=== PATIENT | male | born 1975 | race Hispanic/Latino ===

== ENCOUNTER 2016-10-02 17:16 | Emergency (ER) | payer BC ==
[2016-10-02 17:16] VITALS: BMI 31.1
[2016-10-02 17:40] VITALS: BP 150/81; TEMP 98
[2016-10-02] MEDS ORDERED: Lidocaine 5% Patch TD STA (17:59)
--- NOTE | 2016-10-02 18:04 | ED PDOC ---
Arrival/HPI - General Chief Complaint: Back Pain Time Seen by Provider: 10/02/16 17:20 Historian: Patient - History of Present Illness Narrative History of Present Illness (Text): 10/02/16 17:30 41 y/o male, pmh including chronic lower back pain x 6 years with radiating pain, c/o rt. lower back pain with radiating pain to the rt. lower extremity started again today with on fall or trauma. Aching pain, aggravated by bending , no urinary symptoms, no rash, no pain medication taken at home, no fever or chills, no urinary or bowel incontinence or retention, no other medical or psychological complaints. Past Medical History - Provider Review Nursing Documentation Reviewed: Yes - Infectious Disease Hx of Infectious Diseases: None - Tetanus Immunization Tetanus Immunization: Up to Date - Past Medical History Past Medical History: No Previous - Psychiatric Hx Substance Use: No - Suicidal Assessment Feels Threatened In Home Enviroment: No Family/Social History - Physician Review Nursing Documentation Reviewed: Yes Family/Social History: Unknown Family HX Smoking Status: Never Smoked Hx Alcohol Use: Yes Hx Substance Use: No Hx Substance Use Treatment: No Allergies/Home Meds Allergies/Adverse Reactions: Allergies No Known Allergies Allergy (Verified 10/02/16 17:40) Home Medications: Home Meds Medication Instructions Recorded Confirmed Naproxen [Naprosyn] 500 mg PO BID PRN 10/02/16 10/02/16 Review of Systems - Review of Systems Constitutional: absent: Fatigue, Fevers Eyes: absent: Vision Changes ENT: absent: Hearing Changes Respiratory: absent: Cough, Sputum Cardiovascular: absent: Chest Pain Gastrointestinal: absent: Abdominal Pain, Nausea, Vomiting Musculoskeletal: Back Pain. absent: Arthralgias, Neck Pain, Joint Swelling, Myalgias Skin: absent: Rash, Pruritis, Skin Lesions, Laceration, Abscess, Ulcer, Cellulitis Psychiatric: absent: Anxiety, Depression, Suicidal Ideation Physical Exam Vital Signs Reviewed: Yes Vital Signs Temp Pulse Resp BP Pulse Ox 10/02/16 17:34 98 F 77 18 150/81 97 Temperature: Afebrile Blood Pressure: Normal Pulse: Regular Respiratory Rate: Normal Appearance: Positive for: Well-Appearing, Non-Toxic, Comfortable Pain Distress: Moderate Mental Status: Positive for: Alert and Oriented X 3 - Systems Exam Head: Present: Atraumatic, Normocephalic Pupils: Present: PERRL Extroacular Muscles: Present: EOMI Conjunctiva: Present: Normal Mouth: Present: Moist Mucous Membranes Neck: Present: Normal Range of Motion Respiratory/Chest: Present: Clear to Auscultation, Good Air Exchange. No: Respiratory Distress, Accessory Muscle Use Cardiovascular: Present: Regular Rate and Rhythm, Normal S1, S2. No: Murmurs Abdomen: Present: Normal Bowel Sounds. No: Tenderness, Distention, Peritoneal Signs Back: Present: Other (LS spine: no midline or paraspinal tenderenss, no step off , no rash, FROM without limitation, sensation intact, motor 5/5.). No: CVA Tenderness, Midline Tenderness, Paraspinal Tenderness Upper Extremity: Present: Normal Inspection. No: Cyanosis, Edema Lower Extremity: Present: Normal Inspection. No: Edema Neurological: Present: GCS=15, Speech Normal, Motor Func Grossly Intact, Gait Normal, Memory Normal Skin: Present: Warm, Dry, Normal Color. No: Rashes Psychiatric: Present: Alert, Oriented x 3, Normal Insight, Normal Concentration Medical Decision Making ED Course and Treatment: 10/02/16 18:04 -Toradol IM and lidoderm patch. -Pt. has no emergent indication of the labs or radiology studies but I advised him for outpatient MRI study with the PMD. -Pt. has no focal neurological deficits, cane given for supportive treatment. -Discharge home with duexis, flexeril, lidoderm patch, cane, heat compression, avoid strenuous exercise or activity, follow up with your own pmd and orthopedic for outpatient MRI LS spine study for further evaluation about your chronic lower back pain, return to the ER for any new or worsening signs or symptoms. - PA / WARD CLERK / Resident Statement / has reviewed & agrees with the documentation as recorded. Disposition/Present on Arrival - Present on Arrival Any Indicators Present on Arrival: No History of DVT/PE: No History of Uncontrolled Diabetes: No Urinary Catheter: No History of Decub. Ulcer: No History Surgical Site Infection Following: None - Disposition Have Diagnosis and Disposition been Completed?: Yes Diagnosis: Chronic lower back pain Disposition: HOME/ ROUTINE Disposition Time: 17:50 Patient Plan: Discharge Condition: GOOD Additional Instructions: Discharge home with duexis, flexeril, lidoderm patch, cane, heat compression, avoid strenuous exercise or activity, follow up with your own pmd and orthopedic for outpatient MRI LS spine study for further evaluation about your chronic lower back pain, return to the ER for any new or worsening signs or symptoms. Prescriptions: Ibuprofen/Famotidine [Duexis 26.6 mg-800 mg] 1 tab PO TID PRN #21 tab PRN Reason: Other Cyclobenzaprine [Cyclobenzaprine HCl] 10 mg PO TID PRN #21 tab PRN Reason: Other Lidocaine 5% [Lidoderm] 1 patch TP DAILY PRN #10 patch PRN Reason: Other Referrals: [facility] [place] [Outside] - Follow up with primary Iftikhar Diaz III, MD [Medical Doctor] - Follow up with primary Forms: WORK NOTE
[2016-10-02 18:34] VITALS: PULSE 80; RESP 16; O2SAT 98
== END 2016-10-02 18:35 | disposition home or self-care (01) ==
LOC: ED 17:16
DX: M54.5 Low back pain (principal); G89.29 Other chronic pain
CPT/HCPCS: 96372; 99282; J1885